=== PATIENT | male | born 1970 | race Caucasian/White ===

== ENCOUNTER 2018-12-06 08:28 | Inpatient (IN) | payer OTHER ==
[2018-12-06 09:11] VITALS: BMI 37.2
--- NOTE | 2018-12-06 09:28 | HP ---
CIWA Score Nausea/Vomitin Muscle Tremors: 2 Anxiety: 3 Agitation: 3 Paroxysmal Sweats: 1-Minimal Palms Moist Orientation: 0-Oriented Tacttile Disturbances: 1-Very Mild Itch/Numbness Auditory Disturbances: 0-None Visual Disturbances: 0-None Headache: 2-Mild CIWA-Ar Total Score: 14 - Admission Criteria OASAS Guidelines: Admission for Medically Managed Detox: Requires at least one of the followin. CIWA greater than 12 2. Seizures within the past 24 hours 3. Delirium tremens within the past 24 hours 4. Hallucinations within the past 24 hours 5. Acute intervention needed for co occurring medical disorder 6. Acute intervention needed for co occurring psychiatric disorder 7. Severe withdrawal that cannot be handled at a lower level of care (continued vomiting, continued diarrhea, abnormal vital signs) requiring intravenous medication and/or fluids 8. Admission ROS BHS - HPI Chief Complaint: i need help to stop drinking alcohol Allergies/Adverse Reactions: Allergies Allergy/AdvReac Type Severity Reaction Status Date / Time No Known Allergies Allergy Verified 12/06/18 09:07 History of Present Illness: this 48 years old male with alcohol dependence,seeking detox,withdrawal symptom multiple admission in the past,last admission 02/09/16 to 02/13/16 [facility] denied seizure,syncope alcohol related,homeless hypertension ,no med depression anxiety longest sobriety 2 years Exam Limitations: No Limitations - Ebola screening Have you traveled outside of the country in the last 21 days: No Have you had contact with anyone from an Ebola affected area: No - Review of Systems Constitutional: Loss of Appetite, Malaise, Night Sweats, Changes in sleep, Weakness EENT: reports: Nose Congestion Respiratory: reports: No Symptoms reported Cardiac: reports: No Symptoms Reported GI: reports: Diarrhea, Nausea, Poor Appetite, Abdominal cramping : reports: No Symptoms Reported Musculoskeletal: reports: Back Pain, Muscle Pain Integumentary: reports: Dryness Neuro: reports: Headache, Tremors Endocrine: reports: No Symptoms Reported Hematology: reports: No Symptoms Reported Psychiatric: reports: No Sypmtoms Reported, Judgement Intact, Mood/Affect Appropiate, Orientated x3, Anxious Other Systems: Reviewed and Negative Patient History - Patient Medical History Hx Anemia: No Hx Asthma: No Hx Chronic Obstructive Pulmonary Disease (COPD): No Hx Cancer: No Hx Cardiac Disorders: No Hx Congestive Heart Failure: No Hx Hypertension: Yes (no med) Hx Hypercholesterolemia: No Hx Pacemaker: No HX Cerebrovascular Accident: No Hx Seizures: No Hx Dementia: No Hx Diabetes: No Hx Gastrointestinal Disorders: No Hx Liver Disease: No Hx Genitourinary Disorders: No Hx Sexually Transmitted Disorders: No Hx Renal Disease (ESRD): No Hx Thyroid Disease: No Hx Human Immunodeficiency Virus (HIV): No (last 2017 negative) Hx Hepatitis C: No Hx Depression: Yes (anxiety) Hx Suicide Attempt: No Hx Bipolar Disorder: No Hx Schizophrenia: No Other Medical History: no suicidal,no homicidal - Patient Surgical History Past Surgical History: No Hx Neurologic Surgery: No Hx Cataract Extraction: No Hx Cardiac Surgery: No Hx Lung Surgery: No Hx Breast Surgery: No Hx Breast Biopsy: No Hx Abdominal Surgery: No Hx Appendectomy: No Hx Cholecystectomy: No Hx Genitourinary Surgery: No Hx Section: No Hx Orthopedic Surgery: No Other Surgical History: tonsilectomy age 8 Anesthesia Reaction: No - PPD History Previous Implant?: Yes Documented Results: Negative w/o proof Implanted On Prior [facility] Admission?: Yes Date: 11/12/15 Results: 0 mm PPD to be Administered?: No - Smoking Cessation Smoking history: Never smoked Have you smoked in the past 12 months: No Aproximately how many cigarettes per day: 0 If you are a former smoker, when did you quit?: MORE THAN 12 MONTHS AGO Hx Chewing Tobacco Use: No - Substance & Tx. History Hx Alcohol Use: Yes Hx Substance Use: No Substance Use Type: Alcohol Hx Substance Use Treatment: Yes ([facility] to 02/13/16) - Substances abused Alcohol Substance route: Oral Frequency: Daily Amount used: gallons of beer and vodka Age of first use: 17 Date of last use: 12/05/18 Family Disease History - Family Disease History Family Disease History: Other: Father (alcohol), Mother (alcohol) Admission Physical Exam BHS - Vital Signs Vital Signs: Vital Signs - 24 hr 12/06/18 09:07 Temperature 97.5 F L Pulse Rate 63 Respiratory 20 Rate Blood Pressure 162/106 H - Physical General Appearance: Yes: Moderate Distress, Tremorous, Irritable, Sweating, Anxious HEENTM: Yes: Normal ENT Inspection, Normocephalic, IVY, Pharynx Normal, Other ( subconjunctiva hemorrhage laterl aspect of right eye) Respiratory: Yes: Lungs Clear, Normal Breath Sounds, No Respiratory Distress Neck: Yes: Within Normal Limits, Supple, Trachea in good position Breast: Yes: Within Normal Limits Cardiology: Yes: Within Normal Limits, Regular Rhythm, Regular Rate, S1, S2 Abdominal: Yes: Within Normal Limits, Normal Bowel Sounds, Non Tender, Flat, Soft Genitourinary: Yes: Within Normal Limits Back: Yes: Muscle Spasm Musculoskeletal: Yes: full range of Motion, Back pain, Muscle Pain Extremities: Yes: Tremors Neurological: Yes: svp group director II-XII NML intact, Alert, Motor Strength 5/5 Integumentary: Yes: Dry Lymphatic: Yes: Within Normal Limits - Diagnostic (1) Alcohol dependence with uncomplicated withdrawal Current Visit: No Status: Chronic (2) Nicotine dependence Current Visit: No Status: Acute Qualifiers: Nicotine product type: cigarettes Substance use status: uncomplicated Qualified Code(s): F17.210 - Nicotine dependence, cigarettes, uncomplicated (3) Syncope Current Visit: Yes Status: Acute (4) Dehydration Current Visit: Yes Status: Acute (5) Essential hypertension Current Visit: Yes Status: Acute (6) Subconjunctival hemorrhage of right eye Current Visit: Yes Status: Acute Cleared for Admission S - Detox or Rehab [facility] Level of Care: Medically Managed Detox Regimen/Protocol: Librium Breathalyzer - Breathalyzer Breathalyzer: 0.136 Urine Drug Screen - Test Device Lot number: [id number] Expiration date: 08/28/20 - Control Is test valid?: Yes - Results Drug screen NEGATIVE: Yes Inpatient Rehab Admission - Rehab Decision to Admit Inpatient rehab admission?: No
[2018-12-06] MEDS ORDERED: MAGNESIUM HYDROX 2400MG/30ML ORAL SUSPENSION 30 ML CUP PO PRN (09:44)
[2018-12-06] MEDS ORDERED: ACETAMINOPHEN 325 MG TABLET (FP) PO PRN ×2 (09:44)
[2018-12-06] MEDS ORDERED: MAGNESIUM CITRATE 300 ML BOTTLE PO PRN (09:44)
[2018-12-06] MEDS ORDERED: MENTHOL/PHENOL 1 EACH UD MM PRN (09:44)
[2018-12-06] MEDS ORDERED: IBUPROFEN 400 MG TABLET (FP) PO PRN (09:44)
[2018-12-06] MEDS ORDERED: BISMUTH SUBSALICYLATE 262 MG/15 ML BTL PO PRN (09:44)
[2018-12-06] MEDS ORDERED: amLODIPine BESYLATE 10 MG TABLET (FP) PO ONE (10:00)
[2018-12-06] MEDS ORDERED: cloNIDine HCL 0.1 MG TABLET PO ONE (10:05)
[2018-12-06] MEDS: PRENATAL VITAMINS W/ FOLIC ACID TABLET (FP) PO SCH (10:56)
[2018-12-06] MEDS: chlordiazePOXIDE HCL 25 MG CAPSULE PO SCH ×3 (10:56→22:21)
[2018-12-06] MEDS: MAG HYDROX/AL HYDROX/SIMETH 30 ML UNIT-DOSE CUP PO PRN ×2 (10:57→17:19)
[2018-12-06] MEDS: chlordiazePOXIDE HCL 25 MG CAPSULE PO PRN (14:44)
[2018-12-06 15:57] LABS: HEMATOCRIT 46.5 % (35.4-49); MCH 30.5 pg (25.7-33.7); MCHC 34.4 g/dl (32.0-35.9); MEAN CELL VOLUME 88.5 fl (80-96); MEAN PLT VOLUME 7.4 fl (7.5-11.1); PLATELET COUNT 300 K/MM3 (134-434); RBC 5.25 M/mm3 (4.00-5.60); RDW 13.6 % (11.9-15.9); WHITE BLOOD COUNT 5.7 K/mm3 (4.0-10.0)
[2018-12-06 16:08] LABS: BILIRUBIN,TOTAL 1.7 mg/dL (0.2-1); BLOOD UREA NITROGEN 15.3 mg/dL (7-18); CALCIUM 8.8 mg/dL (8.5-10.1); CREATININE 1.1 mg/dL (0.55-1.3)
[2018-12-06] MEDS: THIAMINE HCL 100 MG TABLET (FP) PO SCH (22:21)
[2018-12-06] MEDS: MELATONIN 5 MG TABLETS PO PRN (22:21)
[2018-12-07] MEDS: chlordiazePOXIDE HCL 25 MG CAPSULE PO SCH ×4 (06:09→22:13)
[2018-12-07] MEDS: PRENATAL VITAMINS W/ FOLIC ACID TABLET (FP) PO SCH (10:13)
[2018-12-07] MEDS: amLODIPine BESYLATE 10 MG TABLET (FP) PO SCH (10:14)
[2018-12-07] MEDS: hydrOXYzine HCL 25 MG TABLET (FP) PO PRN ×2 (10:17→17:22)
--- NOTE | 2018-12-07 10:25 | PN ---
S CIWA - CIWA Score Nausea/Vomitin-Mild Nausea/No Vomiting Muscle Tremors: 4-Moderate,w/Arms Extend Anxiety: 4-Mod. Anxious/Guarded Agitation: 4-Moderately Restless Paroxysmal Sweats: 3 Orientation: 0-Oriented Tacttile Disturbances: 0-None Auditory Disturbances: 0-None Visual Disturbances: 0-None Headache: 0-None Present CIWA-Ar Total Score: 16 BHS Progress Note (SOAP) Subjective: shakes sweats interrupted sleep body aches nausea irritable Objective: 12/07/18 10:26 Vital Signs Temperature 97.9 F 12/07/18 10:04 Pulse Rate 64 12/07/18 10:04 Respiratory Rate 20 12/07/18 10:04 Blood Pressure 142/89 12/07/18 10:04 O2 Sat by Pulse Oximetry (%) Laboratory Tests 12/06/18 12/06/18 12/06/18 10:00 10:00 10:00 WBC 5.7 RBC 5.25 Hgb 16.0 Hct 46.5 MCV 88.5 MCH 30.5 MCHC 34.4 RDW 13.6 Plt Count 300 D MPV 7.4 L Sodium 141 Potassium 4.0 Chloride 105 Carbon Dioxide 29 Anion Gap 7 L BUN 15.3 Creatinine 1.1 Est GFR (CKD-EPI)AfAm 92.16 Est GFR (CKD-EPI)NonAf 79.52 Random Glucose 102 Calcium 8.8 Total Bilirubin 1.7 H AST 212 H ALT 191 H Alkaline Phosphatase 67 Total Protein 7.0 Albumin 4.0 RPR Titer Nonreactive labs noted elevated ast/alt noted d/c tylenol increase fluids repeat labs aaox3 ambulating no acute distress Assessment: 12/07/18 10:27 withdrawal sx Plan: continue detox increase fluids ananth szymanski prn
[2018-12-07] MEDS ORDERED: ONDANSETRON *ODT* 4 MG TABLET SL PRN (10:32)
[2018-12-07] MEDS: MELATONIN 5 MG TABLETS PO PRN (22:13)
[2018-12-07] MEDS: THIAMINE HCL 100 MG TABLET (FP) PO SCH (22:13)
[2018-12-08] MEDS: chlordiazePOXIDE HCL 25 MG CAPSULE PO SCH ×4 (05:07→22:19)
[2018-12-08] MEDS: hydrOXYzine HCL 25 MG TABLET (FP) PO PRN ×4 (05:08→22:18)
[2018-12-08] MEDS: METHOCARBAMOL 500 MG TABLET PO PRN ×3 (09:15→22:23)
[2018-12-08 10:05] LABS: SGOT/AST 54 U/L (15-37); SGPT/ALT 102 U/L (13-61)
[2018-12-08] MEDS: PRENATAL VITAMINS W/ FOLIC ACID TABLET (FP) PO SCH (10:26)
[2018-12-08] MEDS: amLODIPine BESYLATE 10 MG TABLET (FP) PO SCH (10:27)
[2018-12-08] MEDS: chlordiazePOXIDE HCL 25 MG CAPSULE PO PRN ×4 (12:19→23:58)
--- NOTE | 2018-12-08 12:58 | PN ---
[facility] CIWA - CIWA Score Nausea/Vomitin-No Nausea/No Vomiting Muscle Tremors: 3 Anxiety: 3 Agitation: 3 Paroxysmal Sweats: 2 Orientation: 0-Oriented Tacttile Disturbances: 0-None Auditory Disturbances: 0-None Visual Disturbances: 0-None Headache: 0-None Present CIWA-Ar Total Score: 11 S Progress Note (SOAP) Subjective: constipation sweats shakes Objective: 12/08/18 12:57 Vital Signs Temperature 97.7 F 12/08/18 09:29 Pulse Rate 61 12/08/18 09:29 Respiratory Rate 18 12/08/18 09:29 Blood Pressure 151/94 12/08/18 09:29 O2 Sat by Pulse Oximetry (%) Laboratory Tests 12/06/18 12/06/18 12/06/18 10:00 10:00 10:00 WBC 5.7 RBC 5.25 Hgb 16.0 Hct 46.5 MCV 88.5 MCH 30.5 MCHC 34.4 RDW 13.6 Plt Count 300 D MPV 7.4 L Sodium 141 Potassium 4.0 Chloride 105 Carbon Dioxide 29 Anion Gap 7 L BUN 15.3 Creatinine 1.1 Est GFR (CKD-EPI)AfAm 92.16 Est GFR (CKD-EPI)NonAf 79.52 Random Glucose 102 Calcium 8.8 Total Bilirubin 1.7 H AST 212 H ALT 191 H Alkaline Phosphatase 67 Total Protein 7.0 Albumin 4.0 RPR Titer Nonreactive 12/08/18 08:00 WBC RBC Hgb Hct MCV MCH MCHC RDW Plt Count MPV Sodium Potassium Chloride Carbon Dioxide Anion Gap BUN Creatinine Est GFR (CKD-EPI)AfAm Est GFR (CKD-EPI)NonAf Random Glucose Calcium Total Bilirubin AST 54 H ALT 102 H Alkaline Phosphatase Total Protein Albumin RPR Titer repeated ast&alt showing improvement aaox3 ambulating no acute distress Assessment: 12/08/18 12:57 withdrawal sx Plan: continue detox increase fluids MOM/citroma prn
[2018-12-08] MEDS: MELATONIN 5 MG TABLETS PO PRN (22:20)
[2018-12-08] MEDS: THIAMINE HCL 100 MG TABLET (FP) PO SCH (23:35)
[2018-12-09] MEDS ORDERED: chlordiazePOXIDE HCL 10 MG CAPSULE PO PRN
[2018-12-09] MEDS: chlordiazePOXIDE HCL 10 MG CAPSULE PO SCH ×3 (05:37→20:14)
[2018-12-09] MEDS: METHOCARBAMOL 500 MG TABLET PO PRN ×3 (07:05→22:21)
[2018-12-09] MEDS: hydrOXYzine HCL 25 MG TABLET (FP) PO PRN ×3 (07:05→22:21)
[2018-12-09] MEDS: amLODIPine BESYLATE 10 MG TABLET (FP) PO SCH (11:05)
[2018-12-09] MEDS: PRENATAL VITAMINS W/ FOLIC ACID TABLET (FP) PO SCH (11:05)
[2018-12-09] MEDS: BACITRACIN 3.5 GM OPTHALMIC OINT TUBE OD SCH ×2 (11:26→18:15)
--- NOTE | 2018-12-09 15:26 | PN ---
S CIWA - CIWA Score Nausea/Vomitin-Mild Nausea/No Vomiting Muscle Tremors: 2 Anxiety: 3 Agitation: 1-Slight > Activity Paroxysmal Sweats: 3 Orientation: 0-Oriented Tacttile Disturbances: 0-None Auditory Disturbances: 0-None Visual Disturbances: 0-None Headache: 0-None Present CIWA-Ar Total Score: 10 BHS Progress Note (SOAP) Subjective: Tremor, chills, interrupted sleep. Noted with blood shot to right eye, patient stated it occurred prior to coming here because he was vomiting. Objective: 12/09/18 15:23 Last Vital Signs Temp Pulse Resp BP Pulse Ox 96.6 F L 74 18 143/72 12/09/18 13:36 12/09/18 13:36 12/09/18 13:36 12/09/18 13:36 PE: Eye: moderate erythemic area to lateral of cornea in right eye. EOMI intact. Laboratory Tests 12/06/18 12/06/18 12/06/18 10:00 10:00 10:00 WBC 5.7 RBC 5.25 Hgb 16.0 Hct 46.5 MCV 88.5 MCH 30.5 MCHC 34.4 RDW 13.6 Plt Count 300 D MPV 7.4 L Sodium 141 Potassium 4.0 Chloride 105 Carbon Dioxide 29 Anion Gap 7 L BUN 15.3 Creatinine 1.1 Est GFR (CKD-EPI)AfAm 92.16 Est GFR (CKD-EPI)NonAf 79.52 Random Glucose 102 Calcium 8.8 Total Bilirubin 1.7 H AST 212 H ALT 191 H Alkaline Phosphatase 67 Total Protein 7.0 Albumin 4.0 RPR Titer Nonreactive TB (QFT) Incubation TB Test (QFT) Nil TB Test (QFT) Mitogen TB Test (QFT) Antigen TB Test (QFT) TB Positive Criteria 12/06/18 12/08/18 10:00 08:00 WBC RBC Hgb Hct MCV MCH MCHC RDW Plt Count MPV Sodium Potassium Chloride Carbon Dioxide Anion Gap BUN Creatinine Est GFR (CKD-EPI)AfAm Est GFR (CKD-EPI)NonAf Random Glucose Calcium Total Bilirubin AST 54 H ALT 102 H Alkaline Phosphatase Total Protein Albumin RPR Titer TB (QFT) Incubation TB Test (QFT) Nil 0.04 TB Test (QFT) Mitogen >10.00 TB Test (QFT) Antigen 0.04 TB Test (QFT) Negative TB Positive Criteria Labs reviewed: Elevated LFTs (trending downward) Assessment: 12/09/18 15:26 Withdrawal sxs Noted with right corneal abrasion and elevated LFTs Plan: Continue detox Encouraged PO water intake Right corneal abrasion: bacitracin ophthalmic ointment to right conjunctiva q 6hr x 7 days, follow up with [facility] post discharge. Elevated LFTs: most likely r/t alcoholism, trending downward
[2018-12-09] MEDS: MELATONIN 5 MG TABLETS PO PRN (22:21)
[2018-12-09] MEDS: THIAMINE HCL 100 MG TABLET (FP) PO SCH (22:21)
[2018-12-10] MEDS: chlordiazePOXIDE HCL 10 MG CAPSULE PO SCH (00:08)
[2018-12-10] MEDS: BACITRACIN 3.5 GM OPTHALMIC OINT TUBE OD SCH ×2 (02:26→05:11)
[2018-12-10] MEDS ORDERED: chlordiazePOXIDE HCL 10 MG CAPSULE PO SCH (05:00)
[2018-12-10] MEDS: hydrOXYzine HCL 25 MG TABLET (FP) PO PRN (05:11)
[2018-12-10 06:24] VITALS: BP 127/90; PULSE 80; TEMP 97.7
--- NOTE | 2018-12-10 09:12 | DS ---
[facility] Detox Discharge Summary Admission Date: 12/06/18 Discharge Date: 12/10/18 - History Present History: Alcohol Dependence - Physical Exam Results Vital Signs: Vital Signs Temperature 97.7 F 12/10/18 06:00 Pulse Rate 80 12/10/18 06:00 Respiratory Rate 18 12/10/18 06:00 Blood Pressure 127/90 12/10/18 06:00 O2 Sat by Pulse Oximetry (%) Pertinent Admission Physical Exam Findings: pt arrived in withdrawals Laboratory Tests 12/06/18 12/06/18 12/06/18 10:00 10:00 10:00 WBC 5.7 RBC 5.25 Hgb 16.0 Hct 46.5 MCV 88.5 MCH 30.5 MCHC 34.4 RDW 13.6 Plt Count 300 D MPV 7.4 L Sodium 141 Potassium 4.0 Chloride 105 Carbon Dioxide 29 Anion Gap 7 L BUN 15.3 Creatinine 1.1 Est GFR (CKD-EPI)AfAm 92.16 Est GFR (CKD-EPI)NonAf 79.52 Random Glucose 102 Calcium 8.8 Total Bilirubin 1.7 H AST 212 H ALT 191 H Alkaline Phosphatase 67 Total Protein 7.0 Albumin 4.0 RPR Titer Nonreactive TB (QFT) Incubation TB Test (QFT) Nil TB Test (QFT) Mitogen TB Test (QFT) Antigen TB Test (QFT) TB Positive Criteria 12/06/18 12/08/18 10:00 08:00 WBC RBC Hgb Hct MCV MCH MCHC RDW Plt Count MPV Sodium Potassium Chloride Carbon Dioxide Anion Gap BUN Creatinine Est GFR (CKD-EPI)AfAm Est GFR (CKD-EPI)NonAf Random Glucose Calcium Total Bilirubin AST 54 H ALT 102 H Alkaline Phosphatase Total Protein Albumin RPR Titer TB (QFT) Incubation TB Test (QFT) Nil 0.04 TB Test (QFT) Mitogen >10.00 TB Test (QFT) Antigen 0.04 TB Test (QFT) Negative TB Positive Criteria pt feels comfortable aaox3 ambulating no s/s of withdrawals noted - Treatment Hospital Course: Detox Protocol Followed, Detoxed Safely, Responded well, Discharged Condition Good, Rehab Referral Accepted Patient has Accepted a Rehab Referral to: referral provided - Medication Discharge Medications: Ambulatory Orders NK [No Known Home Medication] 12/06/18 - Diagnosis (1) Essential hypertension Current Visit: Yes Status: Chronic (2) Subconjunctival hemorrhage of right eye Current Visit: Yes Status: Acute (3) Syncope Current Visit: Yes Status: Acute (4) Corneal abrasion, left Current Visit: No Status: Acute Qualifiers: Encounter type: initial encounter Qualified Code(s): S05.02XA - Injury of conjunctiva and corneal abrasion without foreign body, left eye, initial encounter (5) Nicotine dependence Current Visit: Yes Status: Chronic Qualifiers: Nicotine product type: cigarettes Substance use status: uncomplicated Qualified Code(s): F17.210 - Nicotine dependence, cigarettes, uncomplicated (6) Substance induced mood disorder Current Visit: No Status: Acute (7) Alcohol dependence with uncomplicated withdrawal Current Visit: Yes Status: Chronic - AMA Did Patient Leave Against Medical Advice: No
[2018-12-11] MEDS ORDERED: chlordiazePOXIDE HCL 10 MG CAPSULE PO ONE (05:00)
== END 2018-12-10 09:23 | disposition home or self-care (01) | DRG 775 ==
LOC: YASAS 08:28 → Y6N 09:51
PROVIDERS: ADMIT Surgery; ATTEND Surgery
PROC: HZ2ZZZZ Detoxification Services for Substance Abuse Treatment (ICD-10-PCS; principal; 2018-12-06)
DX: F10.230 Alcohol dependence with withdrawal, uncomplicated (principal); F17.210 Nicotine dependence, cigarettes, uncomplicated; F19.24 Other psychoactive substance dependence with psychoactive substance-induced mood disorder; I10 Essential (primary) hypertension; R74.0 Nonspecific elevation of levels of transaminase and lactic acid dehydrogenase [LDH]; E86.0 Dehydration; H11.31 Conjunctival hemorrhage, right eye; S05.02XA Injury of conjunctiva and corneal abrasion without foreign body, left eye, initial encounter; X58.XXXA Exposure to other specified factors, initial encounter; Y93.9 Activity, unspecified; Y92.9 Unspecified place or not applicable
CPT/HCPCS: 36415; 80053; 84450; 84460; 85027; 86480; 86593; J0735